=== PATIENT | male | born 1975 | race Caucasian/White ===

== ENCOUNTER 2017-06-29 06:45 | Emergency (ER) | payer SELFPAY ==
[2017-06-29] MEDS ORDERED: TETRACAINE HCL 150 DROP BTL ONE (07:02)
--- NOTE | 2017-06-29 07:11 | ERNOTE ---
ENT HPI Presenting Symptoms: eye pain Time Seen by Provider: 06/29/17 07:11 Source: patient Exam Limitations: no limitations - Immun/Allergies/Home Medications Immunizations: IMMUNIZATION HX Immunizations Up to Date No History of Influenza Vaccine No Hx Pneumococcal Vaccination No Allergies/Adverse Reactions: Allergies Allergy/AdvReac Type Severity Reaction Status Date / Time No Known Allergies Allergy Unverified 06/29/17 06:59 Home Medications: HOME MEDICATIONS Erythromycin Base [Erythromycin Ophthalmic Ointment] 1 cm RIGHTEYE Q4H #1 tube 06/29/17 [Last Taken Unknown] - History of Present Illness Narrative: Patient was working with [employer] when some splashed into his right eye during the night. He immediately flushed his eye, flushing it for about an hour. He was working where a [employer] clinician comes in during the morning, the eap clinician recommended that he be seen in the ED. He states that he has some mild irritation, but is not in any dire pain and has no visual difficulties. Severity: Present: mild ENT Location: Present: eye (R) Prearrival Treatment: Present: flushing eys Modifying Factors - Worsens: Reports: other - rubbing Associated Symptoms - ENT: Reports: denies symptoms Review of Systems - Review of Systems Constitutional: Absent: recent illness, fever, chills EYE: Present: eye pain, eye discharge, tearing ENT: Absent: ear pain, ear discharge Respiratory: Absent: shortness of breath, cough Cardiology: Absent: chest pain Gastrointestinal/Abdominal: Absent: nausea, vomiting, diarrhea Genitourinary: Present: no symptoms reported Musculoskeletal: Present: no symptoms reported Skin: Present: no symptoms reported Neurological: Present: no symptoms reported Endocrine: Present: no symptoms reported Hematologic/Lymphatic: Present: no symptoms reported Psych: Present: no symptoms reported - Patient's Past Medical History Patient History - Medical: No pertinent hx Patient History - Cardiac/Respiratory: No pertinent hx Patient History - Cancer: No Hx of Cancer Patient History - Surgical Procedures: Appendectomy, Other Patient History - Other: None - Social History Living Situations: home Psych History: No pertinent hx Smoking Status: Never smoker Alcohol Use: none Drug Use: none - Immunizations Immunizations Up to Date: No Hx Pneumococcal Vaccination: No History of Influenza Vaccine: No Physical Exam - Physical Exam General Appearance: Present: wd/wn, alert, no apparent distress Head Exam: Present: normal inspection, no evidence of injury Eye Exam: Normal inspection: left, PERRL: bilateral, EOMI: bilateral, Sclera injection: right, Eye drainage: right, Eyelid inflammation: right Ears, Nose, Throat: Present: normal ENT inspection, normal pharynx Neck: Present: normal inspection, nontender Respiratory: Present: no respiratory distress, normal breath sounds, no accessory muscle use Cardiovascular/Chest: Present: regular rate, rhythm, no murmur Gastrointestinal/Abdominal: Present: normal bowel sounds, nontender, nondistended, soft Back Exam: Present: normal inspection, normal range of motion Extremity Exam: Present: normal inspection Neurological Exam: Present: alert, oriented, normal mood/affect, no motor/ sensory deficits Skin Exam: Present: normal color, warm/dry ED Progress - Vital Signs Patient's Vital Signs:: I have reviewed the patient's vital signs. Vital Signs: Vital Signs 06/29/17 06:54 Temperature 36.5 C Pulse Rate 73 Respiratory 17 Rate Blood Pressure 140/100 O2 Sat by Pulse 98 Oximetry - Progress/Reassessment Chief Complaint: Eye Injury/Trauma Procedures Eye Location: right eye Tetracaine Drops Administered: Yes Eye - Cornea: Right: examined w/fluorescein Antibiotic Ointment/Drps Admin: right eye Complications: Pt jessica procedure well Plan - Plan Plan: Patient counseled to follow up with Dr. Jonathan Lerner, Ophthalmology for further evaluation and treatment. Placed the patient on Erythromycin Ointment to the right eye. Departure Clinical Impression: Chemical exposure of eye - Departure Disposition: Home self-care Condition: Good Instructions: Chemical Conjunctivitis, [id number] Referrals: Pablo Adkins MD [Primary Care Provider] - Jonathan Lerner MD [Staff Physician] - (Call today to be seen in next 1-2 days) Prescriptions: Erythromycin Base [Erythromycin Ophthalmic Ointment] 1 cm RIGHTEYE Q4H #1 tube
[2017-06-29] MEDS ORDERED: ERYTHROMYCIN BASE 3.5 APPL TUBE RIGHTEYE SCH (08:00)
[2017-06-29] MEDS ORDERED: ERYTHROMYCIN BASE 3.5 APPL TUBE ONE (08:03)
[2017-06-29 08:10] VITALS: BP 136/96
== END 2017-06-29 08:08 | disposition home or self-care (01) ==
LOC: ER 06:45
DX: Z57.5 Occupational exposure to toxic agents in other industries (principal); H57.8 Other specified disorders of eye and adnexa; X58.XXXA Exposure to other specified factors, initial encounter; Y93.89 Activity, other specified; Y92.59 Other trade areas as the place of occurrence of the external cause; Y99.0 Civilian activity done for income or pay